=== PATIENT | female | born 1960 | race Two or more races ===

== ENCOUNTER 2017-06-29 00:53 | Observation (INO) | payer OTHER ==
--- NOTE | 2017-06-29 01:21 | ED ---
GI/ HPI - HPI Summary HPI Summary: 56-year-old female presents with left lower quadrant pain for the past two days. She states on Tuesday she had this pain she thought it was food poisoning. She states that it went away and Tuesday she developed a headache which has since resolved. She states last night the pain returned and has been very intense in her left lower quadrant for the past couple hours. She states it is a little better after she vomited. She has only vomited once. She denies any nausea at the moment. She denies any diarrhea constipation. She states it feels similar to when she had ectopic 10 years ago in her fallopian tube on the left side. She had surgery for the ectopic. No other surgeries. No fevers. No pain with urination. No vaginal discharge. She states she feels a pressure in her rectum. No blood in her stool. No flank pain. She states the pain is very localized and does not move anywhere. She has not taken anything for pain. Pain is currently a 6 out of 10. She states she still gets her priod but it is regular. She finished her period a couple days ago. She states the pain is worst with movement. - History of Current Complaint Pain Intensity: 7 <Rosaura Montesinos - Last Filed: 06/29/17 02:36> <Reuben Gil - Last Filed: 06/29/17 04:07> - History of Current Complaint Chief Complaint: EDAbdPain Time Seen by Provider: 06/29/17 01:10 Stated Complaint: ABD PAIN - Allergy/Home Medications Allergies/Adverse Reactions: Allergies Allergy/AdvReac Type Severity Reaction Status Date / Time No Known Allergies Allergy Verified 06/29/17 00:59 Home Medications: Home Medications NK [No Home Medications Reported] 06/29/17 [History Confirmed 06/29/17] PMH/Surg Hx/FS Hx/Imm Hx Endocrine/Hematology History: Denies: Hx Anticoagulant Therapy Respiratory History: Denies: Hx Asthma Infectious Disease History: No Infectious Disease History: Denies: Traveled Outside the [place] in Last 30 Days - Family History Known Family History: Negative: Diabetes <Rosaura Montesinos - Last Filed: 06/29/17 02:36> Review of Systems Negative: Fever Negative: Chest Pain Negative: Shortness Of Breath Positive: Abdominal Pain - LLQ, Vomiting, Nausea. Negative: Diarrhea All Other Systems Reviewed And Are Negative: Yes <YamelRosaura - Last Filed: 06/29/17 02:36> Physical Exam Triage Information Reviewed: Yes Vital Signs On Initial Exam: Initial Vitals Temp Pulse Resp BP Pulse Ox 97.5 F 84 16 153/81 99 06/29/17 00:55 06/29/17 00:55 06/29/17 00:55 06/29/17 00:55 06/29/17 00:55 Vital Signs Reviewed: Yes Appearance: Positive: Well-Appearing Skin: Positive: Warm, Dry Head/Face: Positive: Normal Head/Face Inspection Eyes: Positive: Normal, Conjunctiva Clear Respiratory/Lung Sounds: Positive: Clear to Auscultation, Breath Sounds Present Cardiovascular: Positive: Normal, RRR Abdomen Description: Positive: Soft, Other: - tenderness LLQ, no rebound, no inguinal lymphadenopathy, no hearnia felt. Negative: CVA Tenderness (L) Bowel Sounds: Positive: Present Pelvic Exam: Positive: External Exam Normal, Bimanual Exam Normal, No Cerv. Motion Tender. Negative: Tender w/ Cervical Motion, Tender Adnexa, Tender Uterus Musculoskeletal: Positive: Normal Neurological: Positive: Normal Psychiatric: Positive: Normal <YamelRosaura - Last Filed: 06/29/17 02:36> Vital Signs On Initial Exam: Initial Vitals Temp Pulse Resp BP Pulse Ox 97.5 F 84 16 153/81 99 06/29/17 00:55 06/29/17 00:55 06/29/17 00:55 06/29/17 00:55 06/29/17 00:55 <Reuben Gil - Last Filed: 06/29/17 04:07> Diagnostics - Vital Signs Vital Signs Temp Pulse Resp BP Pulse Ox 06/29/17 00:55 97.5 F 84 16 153/81 99 - Laboratory Result Diagrams: 06/29/17 01:25 06/29/17 01:25 Lab Statement: Any lab studies that have been ordered have been reviewed, and results considered in the medical decision making process. <Rosaura Montesinos - Last Filed: 06/29/17 02:36> - Vital Signs Vital Signs Temp Pulse Resp BP Pulse Ox 06/29/17 03:00 80 97 06/29/17 02:51 91 168/103 99 06/29/17 02:20 86 149/83 98 06/29/17 02:18 88 100 06/29/17 00:55 97.5 F 84 16 153/81 99 - Laboratory Lab Results: Lab Results 06/29/17 06/29/17 06/29/17 Range/Units 01:05 01:25 01:25 WBC 11.0 H (3.5-10.8) 10^3/ul RBC 4.52 (4.0-5.4) 10^6/ul Hgb 11.8 L (12.0-16.0) g/dl Hct 36 (35-47) % MCV 80 (80-97) fL MCH 26 L (27-31) pg MCHC 33 (31-36) g/dl RDW 14 (10.5-15) % Plt Count 213 (150-450) 10^3/ul MPV 8.3 (7.4-10.4) um3 Neut % (Auto) 64.3 (38-83) % Lymph % (Auto) 26.9 (25-47) % [place] % (Auto) 6.9 (0-7) % Eos % (Auto) 1.4 (0-6) % Baso % (Auto) 0.5 (0-2) % Absolute Neuts (auto) 7.0 (1.5-7.7) 10^3/ul Absolute Lymphs (auto) 3.0 (1.0-4.8) 10^3/ul Absolute Monos (auto) 0.8 (0-0.8) 10^3/ul Absolute Eos (auto) 0.2 (0-0.6) 10^3/ul Absolute Basos (auto) 0.1 (0-0.2) 10^3/ul Absolute Nucleated RBC 0 10^3/ul Nucleated RBC % 0 Sodium 137 L (139-145) mmol/L Potassium 3.6 (3.5-5.0) mmol/L Chloride 103 (101-111) mmol/L Carbon Dioxide 28 (22-32) mmol/L Anion Gap 6 (2-11) mmol/L BUN 19 (6-24) mg/dL Creatinine 1.07 H (0.51-0.95) mg/dL Est GFR ( Amer) 68.7 (>60) Est GFR (Non-Af Amer) 53.4 (>60) BUN/Creatinine Ratio 17.8 (8-20) Glucose 149 H (70-100) mg/dL Lactic Acid (0.5-2.0) mmol/L Calcium 9.0 (8.6-10.3) mg/dL Total Bilirubin 0.30 (0.2-1.0) mg/dL AST 16 (13-39) U/L ALT 22 (7-52) U/L Alkaline Phosphatase 52 (34-104) U/L C-React Prot High Sens 2.00 mg/L Total Protein 7.2 (6.4-8.9) g/dL Albumin 4.1 (3.2-5.2) g/dL Globulin 3.1 (2-4) g/dL Albumin/Globulin Ratio 1.3 (1-3) Lipase 41 (11.0-82.0) U/L Beta HCG, Quant < 0.60 mIU/mL Urine Color Yellow Urine Appearance Cloudy Urine pH 6.0 (5-9) Ur Specific [place] 1.017 (1.010-1.030) Urine Protein Negative (Negative) Urine Ketones Negative (Negative) Urine Blood 3+ A (Negative) Urine Nitrate Negative (Negative) Urine Bilirubin Negative (Negative) Urine Urobilinogen Negative (Negative) Ur Leukocyte Esterase 1+ A (Negative) Urine WBC (Auto) Trace(0-5/hpf) (Absent) Urine RBC (Auto) 3+(>10/hpf) A (Absent) Ur Squamous Epith Cells Present A (Absent) Urine Bacteria Absent (Absent) Urine Glucose Negative (Negative) 06/29/17 Range/Units 01:25 WBC (3.5-10.8) 10^3/ul RBC (4.0-5.4) 10^6/ul Hgb (12.0-16.0) g/dl Hct (35-47) % MCV (80-97) fL MCH (27-31) pg MCHC (31-36) g/dl RDW (10.5-15) % Plt Count (150-450) 10^3/ul MPV (7.4-10.4) um3 Neut % (Auto) (38-83) % Lymph % (Auto) (25-47) % [place] % (Auto) (0-7) % Eos % (Auto) (0-6) % Baso % (Auto) (0-2) % Absolute Neuts (auto) (1.5-7.7) 10^3/ul Absolute Lymphs (auto) (1.0-4.8) 10^3/ul Absolute Monos (auto) (0-0.8) 10^3/ul Absolute Eos (auto) (0-0.6) 10^3/ul Absolute Basos (auto) (0-0.2) 10^3/ul Absolute Nucleated RBC 10^3/ul Nucleated RBC % Sodium (139-145) mmol/L Potassium (3.5-5.0) mmol/L Chloride (101-111) mmol/L Carbon Dioxide (22-32) mmol/L Anion Gap (2-11) mmol/L BUN (6-24) mg/dL Creatinine (0.51-0.95) mg/dL Est GFR ( Amer) (>60) Est GFR (Non-Af Amer) (>60) BUN/Creatinine Ratio (8-20) Glucose (70-100) mg/dL Lactic Acid 0.9 (0.5-2.0) mmol/L Calcium (8.6-10.3) mg/dL Total Bilirubin (0.2-1.0) mg/dL AST (13-39) U/L ALT (7-52) U/L Alkaline Phosphatase (34-104) U/L C-React Prot High Sens mg/L Total Protein (6.4-8.9) g/dL Albumin (3.2-5.2) g/dL Globulin (2-4) g/dL Albumin/Globulin Ratio (1-3) Lipase (11.0-82.0) U/L Beta HCG, Quant mIU/mL Urine Color Urine Appearance Urine pH (5-9) Ur Specific [place] (1.010-1.030) Urine Protein (Negative) Urine Ketones (Negative) Urine Blood (Negative) Urine Nitrate (Negative) Urine Bilirubin (Negative) Urine Urobilinogen (Negative) Ur Leukocyte Esterase (Negative) Urine WBC (Auto) (Absent) Urine RBC (Auto) (Absent) Ur Squamous Epith Cells (Absent) Urine Bacteria (Absent) Urine Glucose (Negative) Result Diagrams: 06/29/17 01:25 06/29/17 01:25 Lab Statement: Any lab studies that have been ordered have been reviewed, and results considered in the medical decision making process. <Reuben Gil - Last Filed: 06/29/17 04:07> Re-Evaluation - Re-Evaluation First Eval Change: Improved - pain improved. Start Flomax. <Reuben Gil - Last Filed: 06/29/17 04:07> GIGU Course/Dx - Course Course Of Treatment: 56-year-old female presents with left lower quadrant pain for the past couple hours. She states on Tuesday she had this pain she thought it was food poisoning. She states that it went away and Tuesday she developed a headache which has since resolved. She states last night the pain returned and has been very intense in her left lower quadrant. She states it is a little better after she vomited. She denies any diarrhea constipation. She states it feels similar to when she had ectopic 10 years ago. She had surgery for the ectopic. No other surgeries. No fevers. No pain with urination. No vaginal discharge. She states she feels a pressure in her rectum. No blood in her stool. No flank pain. She states the pain is very localized and does not move anywhere. She has not taken anything for pain. Pain is currently a 6 out of 10. On exam tenderness left lower quadrant/left inguinal area. No lymphadenopathy. No hernia noted. Has scar on abdomen from ectopic surgery. pelvic exam nontender cervix or left adnexal. patient is currently decline pain and nausea medication. labs:wbc 11. urine likely a contaminent with hematuria. crp normal. hcg neg. patient signed out to dr Gil pending CT for dispo. - Diagnoses Differential Diagnoses - Female: Bowel Obstruction, Diverticulitis, Incarcerated Hernia, Urinary Tract Infection, Ureteral Calculi <Rosaura Montesinos - Last Filed: 06/29/17 02:36> - Course Course Of Treatment: I supervised the care of the physician assistant golf professional and I performed a history and physical on this patient. History: Left flank pain radiating to the groin beginning 1-1/2-2 days ago. Pain now is mostly in the left pelvis. Nausea, vomiting. No fever. No dysuria. Physical exam: Comfortable at this point with no CVA tenderness. No palpable abdominal or pelvic tenderness. Plan: CT proves 5 mm obstructing distal stone on the left. There is perinephric stranding with concern for rupture of calyx. Start Flomax , urology consult in the morning. Patient is comfortable. Hospitalist to admit. - Physician Notifications Discussed Care Of Patient With: Eliu Vivar - Will admit to the hospital. Urology consult in the morning. <Reuben Gil - Last Filed: 06/29/17 04:07> - Diagnoses Provider Diagnoses: Ureterolithiasis, Renal colic on left side, Obstructive uropathy Discharge - Sign-Out/Discharge Documenting (check all that apply): Sign-Out Patient Signing out patient TO: Reuben Gil <Rosaura Montesinos - Last Filed: 06/29/17 02:36> - Sign-Out/Discharge Documenting (check all that apply): Discharge/Admit/Transfer - Billing Disposition and Condition Condition: FAIR [place] [place]Reuben Gil - Last Filed: 06/29/17 04:07> - Discharge Plan Condition: Fair Disposition: ADMITTED TO [facility] Referrals: Rosaura Phillips MD [Primary Care Provider] -
[2017-06-29 01:55] LABS: Urine Appearance Cloudy; Urine Blood 3+ (Negative); Urine Color Yellow; Urine Ketones Negative (Negative); Urine Protein Negative (Negative); Urine Specific Gravity 1.017 (1.010-1.030); Urine Urobilinogen Negative (Negative)
[2017-06-29 01:56] LABS: ABS Basophils 0.1 10^3/ul (0-0.2); ABS Eosinophils 0.2 10^3/ul (0-0.6); ABS Monocytes 0.8 10^3/ul (0-0.8); ABS Nucleated RBC 0 10^3/ul; Eosinophil % 1.4 % (0-6); Hematocrit 36 % (35-47); Hemoglobin 11.8 g/dl (12.0-16.0); Lymphocyte % 26.9 % (25-47); Mean Corpuscular HGB Conc 33 g/dl (31-36); Mean Corpuscular Hemoglobin 26 pg (27-31); Mean Corpuscular Volume 80 fL (80-97); Mean Platelet Volume 8.3 um3 (7.4-10.4); Nucleated Red Blood Cells % 0; Platelet Count 213 10^3/ul (150-450); Red Blood Count 4.52 10^6/ul (4.0-5.4); Red Cell Distribution Width 14 % (10.5-15)
[2017-06-29 02:14] LABS: EGFR Non-African American 53.4 (>60)
[2017-06-29] MEDS ORDERED: Tamsulosin CAP* 0.4 MG PO ONE (03:43)
[2017-06-29] MEDS ORDERED: NS 0.9% 1000 ML* 1,000 ML IV ONE (03:43)
[2017-06-29] MEDS ORDERED: traMADol TAB* 50 MG PO PRN (05:23)
[2017-06-29] MEDS ORDERED: Ondansetron INJ* 2 MG/ML VIAL IV PRN (05:23)
[2017-06-29] MEDS ORDERED: Acetaminophen TAB* 325 MG PO PRN (05:23)
[2017-06-29] MEDS ORDERED: Ketorolac INJ* 30 MG/ML 1 ML VIAL IV PRN (05:23)
--- NOTE | 2017-06-29 06:49 | HP ---
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 Tuesday she did not feel well with a headache and experienced severe L flank cramping pain which reminded her of her previous ectopic pain prompting her to present for evaluation which revealed a 5mm L UVJ stone with hydronephrosis & concern for ruptured calyx. She experienced some nausea and sweats with the worst of the pain, but no F/C. She did vomit once in the ED. PMedHx ectopic s/p L salpingectomy urolithiasis, remote Ambulatory Orders NK [No Home Medications Reported] 06/29/17 Allergies No Known Allergies Allergy (Verified 06/29/17 00:59) PSurgHx L salpingectomy tonsillectomy SocHx: no tobacco, rare alcohol, no recreational drugs; lives with her ; full code status FamHx: reviewed & negative ROS: as above, otherwise reviewed and all were negative vitals: Vital Signs Temp 36.8 C 06/29/17 06:05 Pulse 92 06/29/17 06:05 Resp 18 06/29/17 06:05 BP 148/85 06/29/17 06:05 Pulse Ox 97 06/29/17 06:05 Intake & Output 06/28/17 06/28/17 06/29/17 11:59 23:59 11:59 Intake Total 1000 Output Total 300 Balance 700 Weight 61.235 kg Intake: IV Fluids 1000 Output: Urine 300 Constitutional: NAD, normally developed, well-nourished female HEENM: atraumatic; sclera/conjunctiva: anicteric/clear; hearing: intact; oropharynx: clear, moist Neck: soft tissue: non-tender; thyroid: normal Pulmonary: clear to auscultation bilaterally, good aeration, no accessory muscle use CV: RR/RR, normal S1S2, no carotid bruit, no jugular venous distention, 2+ B DP/ PT, no edema Abdominal: soft, non-distended, non-tender, no rebound/guarding/rigidity, normoactive bowel sounds, no hepatosplenomegaly or masses, no costovertebral angle tenderness Musculoskeletal: general: grossly intact, no tenderness to palpation Integumental: normal appearance and texture of exposed skin Psychiatric orientation: AA&O to PPTS affect: calm mood: pleasant eye contact: good content: reliable memory: intact responses: timely insight: excellent Testing: Lab Results 06/29/17 06/29/17 06/29/17 Range/Units 01:05 01:25 01:25 WBC 11.0 H (3.5-10.8) 10^3/ul RBC 4.52 (4.0-5.4) 10^6/ul Hgb 11.8 L (12.0-16.0) g/dl Hct 36 (35-47) % MCV 80 (80-97) fL MCH 26 L (27-31) pg MCHC 33 (31-36) g/dl RDW 14 (10.5-15) % Plt Count 213 (150-450) 10^3/ul MPV 8.3 (7.4-10.4) um3 Neut % (Auto) 64.3 (38-83) % Lymph % (Auto) 26.9 (25-47) % [place] % (Auto) 6.9 (0-7) % Eos % (Auto) 1.4 (0-6) % Baso % (Auto) 0.5 (0-2) % Absolute Neuts (auto) 7.0 (1.5-7.7) 10^3/ul Absolute Lymphs (auto) 3.0 (1.0-4.8) 10^3/ul Absolute Monos (auto) 0.8 (0-0.8) 10^3/ul Absolute Eos (auto) 0.2 (0-0.6) 10^3/ul Absolute Basos (auto) 0.1 (0-0.2) 10^3/ul Absolute Nucleated RBC 0 10^3/ul Nucleated RBC % 0 Sodium 137 L (139-145) mmol/L Potassium 3.6 (3.5-5.0) mmol/L Chloride 103 (101-111) mmol/L Carbon Dioxide 28 (22-32) mmol/L Anion Gap 6 (2-11) mmol/L BUN 19 (6-24) mg/dL Creatinine 1.07 H (0.51-0.95) mg/dL Est GFR ( Amer) 68.7 (>60) Est GFR (Non-Af Amer) 53.4 (>60) BUN/Creatinine Ratio 17.8 (8-20) Glucose 149 H (70-100) mg/dL Lactic Acid (0.5-2.0) mmol/L Calcium 9.0 (8.6-10.3) mg/dL Total Bilirubin 0.30 (0.2-1.0) mg/dL AST 16 (13-39) U/L ALT 22 (7-52) U/L Alkaline Phosphatase 52 (34-104) U/L C-React Prot High Sens 2.00 mg/L Total Protein 7.2 (6.4-8.9) g/dL Albumin 4.1 (3.2-5.2) g/dL Globulin 3.1 (2-4) g/dL Albumin/Globulin Ratio 1.3 (1-3) Lipase 41 (11.0-82.0) U/L Beta HCG, Quant < 0.60 mIU/mL Urine Color Yellow Urine Appearance Cloudy Urine pH 6.0 (5-9) Ur Specific [place] 1.017 (1.010-1.030) Urine Protein Negative (Negative) Urine Ketones Negative (Negative) Urine Blood 3+ A (Negative) Urine Nitrate Negative (Negative) Urine Bilirubin Negative (Negative) Urine Urobilinogen Negative (Negative) Ur Leukocyte Esterase 1+ A (Negative) Urine WBC (Auto) Trace(0-5/hpf) (Absent) Urine RBC (Auto) 3+(>10/hpf) A (Absent) Ur Squamous Epith Cells Present A (Absent) Urine Bacteria Absent (Absent) Urine Glucose Negative (Negative) 06/29/17 Range/Units 01:25 WBC (3.5-10.8) 10^3/ul RBC (4.0-5.4) 10^6/ul Hgb (12.0-16.0) g/dl Hct (35-47) % MCV (80-97) fL MCH (27-31) pg MCHC (31-36) g/dl RDW (10.5-15) % Plt Count (150-450) 10^3/ul MPV (7.4-10.4) um3 Neut % (Auto) (38-83) % Lymph % (Auto) (25-47) % [place] % (Auto) (0-7) % Eos % (Auto) (0-6) % Baso % (Auto) (0-2) % Absolute Neuts (auto) (1.5-7.7) 10^3/ul Absolute Lymphs (auto) (1.0-4.8) 10^3/ul Absolute Monos (auto) (0-0.8) 10^3/ul Absolute Eos (auto) (0-0.6) 10^3/ul Absolute Basos (auto) (0-0.2) 10^3/ul Absolute Nucleated RBC 10^3/ul Nucleated RBC % Sodium (139-145) mmol/L Potassium (3.5-5.0) mmol/L Chloride (101-111) mmol/L Carbon Dioxide (22-32) mmol/L Anion Gap (2-11) mmol/L BUN (6-24) mg/dL Creatinine (0.51-0.95) mg/dL Est GFR ( Amer) (>60) Est GFR (Non-Af Amer) (>60) BUN/Creatinine Ratio (8-20) Glucose (70-100) mg/dL Lactic Acid 0.9 (0.5-2.0) mmol/L Calcium (8.6-10.3) mg/dL Total Bilirubin (0.2-1.0) mg/dL AST (13-39) U/L ALT (7-52) U/L Alkaline Phosphatase (34-104) U/L C-React Prot High Sens mg/L Total Protein (6.4-8.9) g/dL Albumin (3.2-5.2) g/dL Globulin (2-4) g/dL Albumin/Globulin Ratio (1-3) Lipase (11.0-82.0) U/L Beta HCG, Quant mIU/mL Urine Color Urine Appearance Urine pH (5-9) Ur Specific [place] (1.010-1.030) Urine Protein (Negative) Urine Ketones (Negative) Urine Blood (Negative) Urine Nitrate (Negative) Urine Bilirubin (Negative) Urine Urobilinogen (Negative) Ur Leukocyte Esterase (Negative) Urine WBC (Auto) (Absent) Urine RBC (Auto) (Absent) Ur Squamous Epith Cells (Absent) Urine Bacteria (Absent) Urine Glucose (Negative) CT abd/pel WO, personally reviewed: IMPRESSION: Mild to moderate left hydronephrosis and perirenal inflammation with possible ruptured calyx secondary to a 5mm distal left ureteral stone just proximal to the UVJ. Additional small left renal stone. Impression: 56F HX urolithiasis presents with 5mm L UVJ stone & ? ruptured calyx DIAGNOSIS & PLAN Primary 5mm L UVJ stone & ? ruptured calyx : pain control : Regulo Chen MD urology consulted, will evaluate in AM : NPO x/ meds with sips of clears : supportive care Admission Rational: observation for further evaluation of possible ruptured calyx 2nd L UVJ stone DVTp: SCDs Code Status: full HCP:
--- NOTE | 2017-06-29 07:51 | RAD ---
INDICATION: Left lower quadrant pain and hematuria. COMPARISON: Comparison is made with a prior CT of the abdomen and pelvis from March 30, 2004. TECHNIQUE: A CT scan of the abdomen and pelvis was performed without intravenous or oral contrast. Contiguous axial sections were obtained from the lung bases through the symphysis pubis. Images were reconstructed in the coronal and sagittal planes. FINDINGS: The lung bases are clear. No pleural effusion is present. The liver and spleen are within normal limits in size without significant focal abnormality on this noncontrast study. No calcified gallstones are seen. The pancreas appears to be within normal limits in size. The adrenal glands and right kidney appear to be within normal limits. There are several small calculi within the left kidney. The largest measures 4 mm in size. The left kidney is enlarged with perinephric stranding. There is dilatation of the renal calyces, pelvis and ureter to the level of a 5 mm calculus just proximal to the ureterovesical junction. This is causing moderate hydronephrosis. In addition there is fluid tracking around the kidney and proximal ureter possibly secondary to a ruptured calyx. The aorta is normal in caliber without significant calcific plaque. No significant enlarged retroperitoneal lymph nodes are seen. The stomach, small and large bowel appear nondistended. The appendix is not well visualized. There is mild sigmoid diverticulosis without evidence for diverticulitis. There is a small periumbilical hernia containing fat. No free intraperitoneal air or fluid is seen. There is grade 1 anterior spondylolisthesis at the L5-S1 level and bilateral spondylolysis at the L5 level. IMPRESSION: 1. MODERATE LEFT HYDRONEPHROSIS WHICH APPEARS TO BE SECONDARY TO A 5 MM CALCULUS IN THE DISTAL LEFT URETER JUST PROXIMAL TO URETEROVESICAL JUNCTION. THERE IS FLUID TRACKING AROUND THE LEFT KIDNEY AND PROXIMAL URETER LIKELY SECONDARY TO A RUPTURED CALYX. THERE ARE ADDITIONAL SMALL LEFT RENAL CALCULI. 2. GRADE 1 ANTERIOR SPONDYLOLISTHESIS AT THE L5-S1 LEVEL AND BILATERAL SPONDYLOLYSIS AT THE L5 LEVEL.
--- NOTE | 2017-06-29 09:35 | RAD ---
INDICATION: Evaluation for surgical planning COMPARISON: None TECHNIQUE: Real-time ultrasound examination of the urinary bladder including grayscale and Doppler color flow analysis. FINDINGS: The patiño of the urinary bladder are smooth. Normal ureteral jets are identified bilaterally. IMPRESSION: Functional ureteral jets are recorded bilaterally.
--- NOTE | 2017-06-29 13:49 | CONS ---
CC: Dr. Rosaura Phillips; Santi Chen MD* UROLOGY CONSULTATION: DATE OF CONSULTATION: 06/29/17 REQUESTING PHYSICIAN: Dr. Eliu Vivar. DIAGNOSES: 1. Left hydronephrosis. 2. Calculus, left distal ureter. 3. Left renal calculi. 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 The pain then subsided and returned on Tuesday with increasing left flank pain, nausea, and vomiting requiring a trip to the emergency room. A CT scan was obtained, which revealed a 5 to 6 mm calculus in the left distal ureter with moderate left hydronephrosis and evidence of calyceal rupture. PAST MEDICAL HISTORY: Significant for ectopic requiring a left salpingectomy and a remote history of a kidney stone about 20 years ago. PAST SURGICAL HISTORY: Significant for left salpingectomy and tonsillectomy. MEDICATIONS ON ADMISSION: None. ALLERGIES: No known drug allergies. FAMILY HISTORY: There is no family history of renal calculi. REVIEW OF SYSTEMS: She is otherwise in excellent health. She denies any chest pain or shortness of breath. There is no history of diabetes mellitus or any other major systemic illness. PHYSICAL EXAM: This is a pleasant healthy-appearing middle-aged lady who is mildly uncomfortable. Blood pressure is 131/73, pulse 94 per minute, temperature 98 degrees Fahrenheit, oxygen saturation 98% on room air. Cardiovascular Exam: Regular rate and rhythm. S1 and S2. Lungs are clear bilaterally. Abdomen is soft with very mild left lower quadrant and left costovertebral angle tenderness. DIAGNOSTIC STUDIES/LABORATORY DATA: I reviewed the labs which revealed a white count of 11.4, hemoglobin and hematocrit of 11.8 and 36 with a platelet count of 213. Sodium is 137, potassium 3.6, BUN and creatinine are 19 and 1.07 with a serum glucose of 149. Urinalysis revealed 3+ rbc's, with negative bacteria. I reviewed the CT scan, which reveals moderate left hydronephrosis secondary to a 5 to 6 mm calculus in the distal left ureter with additional small left renal calculi. I had a detailed discussion with Dr. Saldivar regarding the management of a small left ureteral calculus. I also was present when she had a bladder ultrasound to check for bilateral ureteral jets and bilateral jets were noted on the ultrasound to ruling out a complete obstruction. I do not see any indication at the present time for surgical intervention and I think that this should be managed conservatively. She should be able to pass the calculus with intravenous hydration and can also once she is comfortable be discharged home and can follow up as an outpatient. I have instructed her to call me if there is any severe pain, nausea, vomiting or fever and I will follow her up as an outpatient. [id number]/[facility] #: [id number] EMI
[2017-06-29 14:27] VITALS: BP 112/69
--- NOTE | 2017-06-29 18:04 | DS ---
CC: Dr. Rosaura Phillips; Dr. Chen* DISCHARGE SUMMARY: DATE OF ADMISSION: 06/29/17 DATE OF DISCHARGE: 06/29/17 PRIMARY CARE PROVIDER: Dr. Rosaura Phillips. DISCHARGE DIAGNOSIS: Acute left hydronephrosis with calculus in the left distal ureter. SECONDARY DIAGNOSIS: None. MEDICATIONS AT DISCHARGE: None. HOSPITALIZATION COURSE: Elly Saldivar is a 56-year-old female who presented to the hospital complaining of left flank pain. The CT of the abdomen and pelvis showed left-sided hydronephrosis with ruptured renal calyx as well as ureteral obstruction due to 5 mm calculus at the distal left ureter. By the time the patient was admitted to the floor, her pain had begun to resolve. Repeat bladder ultrasound showed functional ureteral jets. Dr. Chen saw the patient in consultation from Urology and recommended discharging the patient to home. It appears that the patient must have passed the renal stone. The patient is to use Tylenol over-the- counter as needed for pain. At the time of discharge, the patient has minimal discomfort in the left flank and no tenderness on palpation. The patient is recommended to follow up with Dr. Phillips in approximately 4 to 7 days. PHYSICAL EXAMINATION: At the time of discharge, blood pressure of 112/69, heart rate of 82 and regular, respiratory rate 17, oxygen saturation 100% on room air, temperature of 98.0. General: The patient is a very pleasant 56-year -old female, who is in no acute distress. Alert, awake, and oriented x3. HEENT : Head: Atraumatic, normocephalic. Eyes: Pupils are equal, reactive to light and accommodation. Oropharynx is clear. Mucosa moist. Neck: Supple. No JVD. No bruits bilaterally. Cardiovascular: Regular rate and rhythm. No murmur. Respiratory: Clear to auscultation bilaterally. Abdomen: Soft, nontender. Bowel sounds are present in all 4 quadrants. Extremities: There is no edema. Pulses are +2 bilaterally. No clubbing or cyanosis. On evaluation of the back, there is no CVA tenderness on palpation bilaterally. Please note that this is a short summary of the patient's hospitalization. Please refer to further medical records for details. [id number]/[facility] #: [id number] [facility]
== END 2017-06-29 13:10 | disposition home or self-care (01) ==
LOC: ED 00:53 → MED 05:21
PROVIDERS: ADMIT Hospitalist; ATTEND Internal Medicine
DX: N13.2 Hydronephrosis with renal and ureteral calculous obstruction (principal)
CPT/HCPCS: 36415; 74176; 76857; 80053; 81003; 81015; 83605; 83690; 84702; 85025; 86141; 87086; 96360; 99284; A9270-GY; G0378

== ENCOUNTER 2017-06-30 05:37 | Observation (INO) | payer OTHER ==
[2017-06-30] MEDS ORDERED: Ondansetron INJ* 2 MG/ML VIAL ONE ×2 (06:09→17:39)
[2017-06-30] MEDS ORDERED: Ketorolac INJ* 30 MG/ML 1 ML VIAL ONE ×2 (06:09→17:39)
[2017-06-30] MEDS ORDERED: Ketorolac INJ* 30 MG/ML 1 ML VIAL IV PUSH ONE (06:11)
[2017-06-30] MEDS ORDERED: Ondansetron INJ* 2 MG/ML VIAL IV ONE (06:11)
[2017-06-30] MEDS ORDERED: NS 0.9% 1000 ML*IV.FLUID IV ONE (06:15)
--- NOTE | 2017-06-30 06:33 | ED ---
GI/ HPI - HPI Summary HPI Summary: Pt here again today for return of (and worse) LLQ pain w/ Lt flank pain. She was dx'd w/ 5mm stone at UVJ w/ moderate hydronephrosis and ruptured calyces. She was kept for observation and consult w/ Dr. Chen. At time of consult, pt's pain had resolved and she had jets B/L. It was suspected she had passed her stone and so she was d/c'd and instructed to take acetaminophen for pain and f/ u at 8:15am today. Unfortunately, her pain returned in both the flank and LLQ this morning around 4:00am. She tried to treat at home w/ acetaminophen and heat packs until the pain was so unbearable, she came here. Has pain related emesis. Denies fever, chills, PETERSON, CP. Still urinating and had 1 small BM this morning (a couple yesterday while here). Otherwise, healthy 56 y.o. female. She is requesting toradol at this time. - History of Current Complaint Hx Obtained From: Patient Pain Intensity: 9 - Additional Pertinent History Primary Care Physician: [id number] <Mary Chairez - Last Filed: 06/30/17 10:12> <Reuben Gil - Last Filed: 07/01/17 05:29> - History of Current Complaint Chief Complaint: EDFlankPain Time Seen by Provider: 06/30/17 05:54 Stated Complaint: ABD PAIN/VOMITING - Allergy/Home Medications Allergies/Adverse Reactions: Allergies Allergy/AdvReac Type Severity Reaction Status Date / Time No Known Allergies Allergy Verified 06/30/17 05:42 PMH/Surg Hx/FS Hx/Imm Hx Previously Healthy: Yes Endocrine/Hematology History: Denies: Hx Anticoagulant Therapy Respiratory History: Denies: Hx Asthma History: Reports: Hx Kidney Stones - Lt Sensory History: Denies: Hx Contacts or Glasses, Hx Hearing Aid Opthamlomology History: Denies: Hx Contacts or Glasses Infectious Disease History: No Infectious Disease History: Denies: Traveled Outside the [place] in Last 30 Days - Family History Known Family History: Negative: Diabetes - Social History Occupation: Employed Full-time - [employer] Lives: With Family Alcohol Use: Rare Hx Substance Use: No Substance Use Type: Reports: None Hx Tobacco Use: No Smoking Status (MU): Never Smoked Tobacco <Mary Chairez - Last Filed: 06/30/17 10:12> Review of Systems Constitutional: Negative Negative: Fever, Chills, Fatigue Eyes: Negative ENT: Negative Cardiovascular: Negative Respiratory: Negative Positive: Vomiting Positive: see HPI Musculoskeletal: Negative Skin: Negative Neurological: Negative Psychological: Normal All Other Systems Reviewed And Are Negative: Yes <Mary Chairez - Last Filed: 06/30/17 10:12> Physical Exam Triage Information Reviewed: Yes Vital Signs On Initial Exam: Initial Vitals Temp Pulse Resp BP Pulse Ox 97.3 F 87 18 154/93 98 06/30/17 05:39 06/30/17 05:39 06/30/17 05:39 06/30/17 05:39 06/30/17 05:39 Vital Signs Reviewed: Yes Appearance: Positive: Well-Nourished, Ill-Appearing, Pain Distress Skin: Positive: Warm, Skin Color Reflects Adequate Perfusion, Dry Head/Face: Positive: Normal Head/Face Inspection Eyes: Positive: Normal, EOMI ENT: Positive: Hearing grossly normal, Pharynx normal - mucosa somewhat dry Respiratory/Lung Sounds: Positive: Clear to Auscultation, Breath Sounds Present Cardiovascular: Positive: Normal, RRR, S1, S2 Abdomen Description: Positive: Soft, Other: - TTP over LLQ - CVA not tapped as pt is in good deal of pain w/ known cause Bowel Sounds: Positive: Present Pelvic Exam: Positive: Other - deferred Musculoskeletal: Positive: Normal, Strength/ROM Intact Neurological: Positive: Normal, Sensory/Motor Intact, Alert, Oriented to Person Place, Time, CN Intact II-III Psychiatric: Positive: Normal - vomiting but pleasant <Mary Chairez - Last Filed: 06/30/17 10:12> Vital Signs On Initial Exam: Initial Vitals Temp Pulse Resp BP Pulse Ox 97.3 F 87 18 154/93 98 06/30/17 05:39 06/30/17 05:39 06/30/17 05:39 06/30/17 05:39 06/30/17 05:39 <Reuben Gil - Last Filed: 07/01/17 05:29> Diagnostics - Vital Signs Vital Signs Temp Pulse Resp BP Pulse Ox 06/30/17 06:19 77 167/108 99 06/30/17 06:00 84 98 06/30/17 05:49 83 179/98 98 06/30/17 05:39 97.3 F 87 18 154/93 98 - Laboratory Result Diagrams: 06/30/17 06:35 06/30/17 06:35 Lab Statement: Any lab studies that have been ordered have been reviewed, and results considered in the medical decision making process. <Mary Chairez - Last Filed: 06/30/17 10:12> - Vital Signs Vital Signs Temp Pulse Resp BP Pulse Ox 06/30/17 09:19 75 126/80 94 06/30/17 09:00 68 93 06/30/17 08:49 71 141/94 96 06/30/17 08:19 84 141/89 97 06/30/17 08:07 16 06/30/17 08:00 87 98 06/30/17 07:19 70 150/90 97 06/30/17 07:06 74 157/86 95 06/30/17 07:00 69 96 06/30/17 06:50 70 157/86 99 06/30/17 06:37 75 159/91 96 06/30/17 06:19 77 167/108 99 06/30/17 06:00 84 98 06/30/17 05:49 83 179/98 98 06/30/17 05:39 97.3 F 87 18 154/93 98 - Laboratory Lab Results: Lab Results 06/30/17 06/30/17 06/30/17 Range/Units 06:35 06:35 07:30 WBC 11.7 H (3.5-10.8) 10^3/ul RBC 4.50 (4.0-5.4) 10^6/ul Hgb 11.8 L (12.0-16.0) g/dl Hct 36 (35-47) % MCV 80 (80-97) fL MCH 26 L (27-31) pg MCHC 33 (31-36) g/dl RDW 15 (10.5-15) % Plt Count 201 (150-450) 10^3/ul MPV 8.7 (7.4-10.4) um3 Neut % (Auto) 73.4 (38-83) % Lymph % (Auto) 19.7 L (25-47) % [place] % (Auto) 5.4 (0-7) % Eos % (Auto) 1.0 (0-6) % Baso % (Auto) 0.5 (0-2) % Absolute Neuts (auto) 8.6 H (1.5-7.7) 10^3/ul Absolute Lymphs (auto) 2.3 (1.0-4.8) 10^3/ul Absolute Monos (auto) 0.6 (0-0.8) 10^3/ul Absolute Eos (auto) 0.1 (0-0.6) 10^3/ul Absolute Basos (auto) 0.1 (0-0.2) 10^3/ul Absolute Nucleated RBC 0 10^3/ul Nucleated RBC % 0.1 Sodium 137 L (139-145) mmol/L Potassium 3.9 (3.5-5.0) mmol/L Chloride 106 (101-111) mmol/L Carbon Dioxide 25 (22-32) mmol/L Anion Gap 6 (2-11) mmol/L BUN 15 (6-24) mg/dL Creatinine 0.92 (0.51-0.95) mg/dL Est GFR ( Amer) 81.8 (>60) Est GFR (Non-Af Amer) 63.6 (>60) BUN/Creatinine Ratio 16.3 (8-20) Glucose 144 H (70-100) mg/dL Lactic Acid (0.5-2.0) mmol/L Calcium 8.5 L (8.6-10.3) mg/dL Total Bilirubin 0.40 (0.2-1.0) mg/dL AST 15 (13-39) U/L ALT 18 (7-52) U/L Alkaline Phosphatase 49 (34-104) U/L C-Reactive Protein 3.40 (< 5.00) mg/L Total Protein 6.7 (6.4-8.9) g/dL Albumin 3.8 (3.2-5.2) g/dL Globulin 2.9 (2-4) g/dL Albumin/Globulin Ratio 1.3 (1-3) Urine Color Yellow Urine Appearance Clear Urine pH 7.0 (5-9) Ur Specific [place] 1.012 (1.010-1.030) Urine Protein Negative (Negative) Urine Ketones Trace A (Negative) Urine Blood 2+ A (Negative) Urine Nitrate Negative (Negative) Urine Bilirubin Negative (Negative) Urine Urobilinogen Negative (Negative) Ur Leukocyte Esterase Negative (Negative) Urine WBC (Auto) Trace(0-5/hpf) (Absent) Urine RBC (Auto) 1+(3-5/hpf) A (Absent) Ur Squamous Epith Cells Present A (Absent) Urine Bacteria Absent (Absent) Urine Glucose Negative (Negative) 06/30/17 Range/Units 07:55 WBC (3.5-10.8) 10^3/ul RBC (4.0-5.4) 10^6/ul Hgb (12.0-16.0) g/dl Hct (35-47) % MCV (80-97) fL MCH (27-31) pg MCHC (31-36) g/dl RDW (10.5-15) % Plt Count (150-450) 10^3/ul MPV (7.4-10.4) um3 Neut % (Auto) (38-83) % Lymph % (Auto) (25-47) % [place] % (Auto) (0-7) % Eos % (Auto) (0-6) % Baso % (Auto) (0-2) % Absolute Neuts (auto) (1.5-7.7) 10^3/ul Absolute Lymphs (auto) (1.0-4.8) 10^3/ul Absolute Monos (auto) (0-0.8) 10^3/ul Absolute Eos (auto) (0-0.6) 10^3/ul Absolute Basos (auto) (0-0.2) 10^3/ul Absolute Nucleated RBC 10^3/ul Nucleated RBC % Sodium (139-145) mmol/L Potassium (3.5-5.0) mmol/L Chloride (101-111) mmol/L Carbon Dioxide (22-32) mmol/L Anion Gap (2-11) mmol/L BUN (6-24) mg/dL Creatinine (0.51-0.95) mg/dL Est GFR ( Amer) (>60) Est GFR (Non-Af Amer) (>60) BUN/Creatinine Ratio (8-20) Glucose (70-100) mg/dL Lactic Acid 1.1 (0.5-2.0) mmol/L Calcium (8.6-10.3) mg/dL Total Bilirubin (0.2-1.0) mg/dL AST (13-39) U/L ALT (7-52) U/L Alkaline Phosphatase (34-104) U/L C-Reactive Protein (< 5.00) mg/L Total Protein (6.4-8.9) g/dL Albumin (3.2-5.2) g/dL Globulin (2-4) g/dL Albumin/Globulin Ratio (1-3) Urine Color Urine Appearance Urine pH (5-9) Ur Specific [place] (1.010-1.030) Urine Protein (Negative) Urine Ketones (Negative) Urine Blood (Negative) Urine Nitrate (Negative) Urine Bilirubin (Negative) Urine Urobilinogen (Negative) Ur Leukocyte Esterase (Negative) Urine WBC (Auto) (Absent) Urine RBC (Auto) (Absent) Ur Squamous Epith Cells (Absent) Urine Bacteria (Absent) Urine Glucose (Negative) Result Diagrams: 06/30/17 06:35 06/30/17 06:35 Lab Statement: Any lab studies that have been ordered have been reviewed, and results considered in the medical decision making process. <Reuben Gil - Last Filed: 07/01/17 05:29> Re-Evaluation - Re-Evaluation First Eval Change: Improved - 12/14-09/13 w/ toradol Second Eval Change: Improved - pt was trying to avoid narcotics but finally agreed to try 2mg morphine and feels much better now <Mary Chairez - Last Filed: 06/30/17 10:12> GIGU Course/Dx - Course Course Of Treatment: Patient is returning to the ED for second time within the past day due to left-sided flank and belly pain. She was diagnosed with a 5 mm UVJ stone yesterday that was suspected to have passed. Patient was sent home without pain meds and so when her pain returned at 4 AM this morning, she was only able to take Tylenol which did not alleviate the pain. She has had relief with Toradol and even more so with morphine. Nausea has resolved. Her ultrasound and KUB are unremarkable however after conversation with Dr. Chen, he will take patient to the OR to remove the stone. SHe has been NPO since arrival and has no other medical issues to report. Patient is aware and agrees with plan. Note: Patient has only a slight elevated white blood cell count, no fever, normal lactic and CRP levels. No antibiotics will be admitted at this time. <Mary Chairez - Last Filed: 06/30/17 10:12> - Course Course Of Treatment: I supervised the care of the physician assistant front desk manager and I performed a history of physical on this patient. History: Known renal colic with obstructing stone admitted to the hospital yesterday and discharged. They felt the stone had passed after seeing ureteral jets on ultrasound bilaterally. Today awoke with significant flank pain. Physical exam: Distressed, and pain. Abdomen soft and nontender. Plan: Treat for discomfort, admit as needed for pain control and urology consultation. <Reuben Gil - Last Filed: 07/01/17 05:29> - Diagnoses Provider Diagnoses: Left ureteral calculus Discharge - Sign-Out/Discharge Documenting (check all that apply): Discharge/Admit/Transfer - Billing Disposition and Condition Condition: STABLE [place] [facility] [place]Mary Chairez - Last Filed: 06/30/17 10:12> - Billing Disposition and Condition Condition: STABLE [place] [facility] [place] <Reuben Gil - Last Filed: 07/01/17 05:29> - Discharge Plan Condition: Stable Disposition: ADMITT[facility] TO [facility]
[2017-06-30 07:09] LABS: Hematocrit 36 % (35-47); Hemoglobin 11.8 g/dl (12.0-16.0); Mean Corpuscular HGB Conc 33 g/dl (31-36); Mean Corpuscular Hemoglobin 26 pg (27-31); Mean Corpuscular Volume 80 fL (80-97); Red Cell Distribution Width 15 % (10.5-15); White Blood Count 11.7 10^3/ul (3.5-10.8)
[2017-06-30] MEDS ORDERED: Morphine VIAL* 4 MG/ML VIAL (1 ml vial) IV ONE (07:17)
[2017-06-30 07:21] LABS: EGFR Non-African American 63.6 (>60)
[2017-06-30 07:48] LABS: Urine Appearance Clear; Urine Blood 2+ (Negative); Urine Color Yellow; Urine Ketones Trace (Negative); Urine Protein Negative (Negative); Urine Specific Gravity 1.012 (1.010-1.030); Urine Urobilinogen Negative (Negative)
[2017-06-30 08:06] LABS: ABS Basophils 0.1 10^3/ul (0-0.2); ABS Eosinophils 0.1 10^3/ul (0-0.6); ABS Lymphocytes 2.3 10^3/ul (1.0-4.8); ABS Monocytes 0.6 10^3/ul (0-0.8); ABS Neutrophils 8.6 10^3/ul (1.5-7.7); ABS Nucleated RBC 0 10^3/ul; Lymphocyte % 19.7 % (25-47); Mean Platelet Volume 8.7 um3 (7.4-10.4); Nucleated Red Blood Cells % 0.1; Platelet Count 201 10^3/ul (150-450)
--- NOTE | 2017-06-30 08:49 | RAD ---
INDICATION: Left ureteral calculus. COMPARISON: Comparison is made with a prior CT of the abdomen and pelvis from June 29, 2017. TECHNIQUE: Frontal supine films of the abdomen were obtained. FINDINGS: The small bowel and colon appear nondistended. There is a calcification which projects over the left kidney measuring 3 mm in size consistent with a renal calculus as noted on the prior CT study. There are numerous calcifications which project bilaterally over the pelvis making it difficult to assess the position of the previously noted left ureteral vesicle calculus. IMPRESSION: THERE ARE NUMEROUS CALCIFICATIONS WHICH PROJECT BILATERALLY OVER THE PELVIS MAKING IT DIFFICULT TO ASSESS THE POSITION OF THE PREVIOUSLY NOTED LEFT URETERAL VESICLE CALCULUS.
--- NOTE | 2017-06-30 08:51 | RAD ---
HISTORY: Left ureteral stone COMPARISONS: CT dated June 30, 2015 TECHNIQUE: Multiple transverse and longitudinal ultrasound images were obtained of the kidneys and bladder using grayscale and color Doppler imaging. FINDINGS: RIGHT KIDNEY: The right kidney is normal in shape, size, contour, and echogenicity. There is no hydronephrosis or nephrolithiasis. The right kidney measures 10.7 x 4 x 4.6 cm. LEFT KIDNEY: The left kidney is normal in shape, size, contour, and echogenicity. There is a 0.7 cm calculus of the midpole of left kidney corresponding to this calyceal stone noted on previous examination. There is mild pelvocaliectasis. The left kidney measures 11 x 5.1 x 4.2 cm. BLADDER: The bladder is smooth in contour. Bilateral ureteral jets are identified. The left UVJ calculus noted on CT is not well-visualized on the current examination. The prevoid bladder volume is 105 milliliters.. The postvoid bladder volume is 3 milliliters. AORTA AND IVC: No images are submitted of the vasculature. RETROPERITONEUM: Unremarkable. OTHER: None. IMPRESSION: 1. LEFT CALYCEAL STONE WITH MILD LEFT HYDRONEPHROSIS. THE LEFT URETERAL STONE NOTED ON CT IS NOT WELL VISUALIZED ON THE CURRENT EXAMINATION. 2. 3 ML POSTVOID RESIDUAL. BILATERAL URETERAL JETS ARE NOTED.
[2017-06-30] MEDS ORDERED: NS 0.9% 1000 ML* 1,000 ML IV SCH (09:00)
[2017-06-30] MEDS ORDERED: HYDROmorphone INJ* 2 MG/ML CARPUJECT SYRINGE ONE (10:33)
[2017-06-30] MEDS ORDERED: oxyCODONE/Acetamin 5/325 MG* TAB PO PRN (10:49)
[2017-06-30] MEDS ORDERED: HYDROmorphone INJ* 2 MG/ML CARPUJECT SYRINGE IV PRN (10:50)
[2017-06-30] MEDS ORDERED: Ondansetron INJ* 2 MG/ML VIAL IV PRN (10:50)
[2017-06-30] MEDS ORDERED: fentaNYL* 50 MCG/ML 2 ML VIAL (100 MCG VIAL) ONE (15:32)
[2017-06-30] MEDS ORDERED: Midazolam* 1 MG/ML 2 ML VIAL (2 MG) ONE (15:32)
[2017-06-30] MEDS ORDERED: Propofol* 10 MG/ML 20 ML BTL IV PUSH ONE (15:38)
[2017-06-30] MEDS ORDERED: Lidocaine 2% PF * 5 ML VIAL ONE (15:38)
[2017-06-30] MEDS ORDERED: Iohexol 180 (CONTRAST) 10 ML SDV IV ONE (16:37)
[2017-06-30] MEDS ORDERED: Rocuronium* 10 MG/ML VIAL ONE (16:59)
[2017-06-30] MEDS ORDERED: Gentamicin ADULT (*) 160 MG in NS 0.9% 100 ML* 100 ML IVPB ONE (17:00)
[2017-06-30] MEDS ORDERED: cefTRIAXone(*) 2 GM in NS 0.9% 100 ML* 100 ML IVPB ONE (17:00)
[2017-06-30] MEDS ORDERED: Sodium Citrate/Citric Acid* 15 ML UDC ONE (17:03)
[2017-06-30] MEDS ORDERED: Dexamethasone IV* 4 MG/ML 1 ML (4 MG) ONE (17:39)
--- NOTE | 2017-06-30 18:29 | RAD ---
CPT II Codes: G9500 Approximately 9 seconds of fluoroscopy time was used. Duplicated left renal collecting system is noted. This placement of a left ureteral stent. There may be calyceal rupture noted. IMPRESSION: Fluoroscopic services provided for referring physician for left ureteral stent placement. There is likely a calyceal rupture present.
[2017-06-30] MEDS ORDERED: PROCHLORPERAZINE INJ 5 MG/ML 2 ML VIAL ONE (18:57)
[2017-06-30] MEDS ORDERED: Scopolamine 1.5 mg* PATCH ONE (18:58)
[2017-06-30 19:56] VITALS: BP 137/98
--- NOTE | 2017-07-01 10:19 | OP ---
CC: Dr. Rosaura Phillips MD; Dr. Santi Chen* OPERATIVE REPORT: DATE OF OPERATION: 06/30/17 - Inpatient, room SSU 348- DATE OF : 64 SURGEON: Santi Chen MD ANESTHESIOLOGIST: Dr. Sumner. ANESTHESIA: General. PRE-OP DIAGNOSES: 1. Left hydronephrosis. 2. Calculus, left ureter. POST-OP DIAGNOSES: 1. Left hydronephrosis. 2. Calculus, left ureter. OPERATIVE PROCEDURE: 1. Cystoscopy. 2. Left retrograde pyelogram. 3. Left ureteroscopy. 4. Laser lithotripsy of left ureteral calculus and removal of calculus fragments. 5. Left stent insertion. COMPLICATIONS: None. STENT USED: 6-Estonian stent left ureter. OPERATIVE FINDINGS: 1. Left hydronephrosis with evidence of extravasation noted around the left kidney and proximal ureter secondary to a 5 to 6 mm obstructing calculus, left distal ureter. 2. Chronic inflammatory changes surrounding the right orifice with no evidence of any suspicious bladder lesions noted. POSTOPERATIVE CONDITION: Stable. INDICATION: Elly Saldivar is a 56-year-old lady who has made 2 trips for the emergency room secondary to severe left flank pain, nausea and vomiting because of an obstructing calculus in the left ureter. DESCRIPTION OF PROCEDURE: After induction of general anesthesia, the patient was placed in the dorsal lithotomy position. Sequential compression devices were in place and functioning. Initial cystoscopy revealed a normal appearing bladder. There were some chronic inflammatory changes surrounding the right orifice and the rest of the bladder was unremarkable. Clear efflux was noted from the right orifice. There was no efflux noted from the left orifice suggesting that obstruction had become a complete obstruction at this time. A guidewire was introduced into the left ureter. Retrograde pyelogram revealed extravasation around the kidney and proximal ureter with a mildly dilated collecting system. A 6- Estonian semi rigid ureteroscope was introduced and advanced under direct vision. A couple of centimeters above the uterovesical junction, an approximately 6 mm calculus was noted with surrounding inflammatory response. Using a 550 micron holmium laser, this was successfully broken up into multiple fragments and using the 3 pronged grasper, all of the fragments were retrieved. The ureteroscope was advanced more proximally to make sure there were no remaining fragments and none were noted. A 6-Estonian stent was introduced and positioned under fluoroscopy with good proximal and distal positioning obtained. A 16-Estonian De La Rosa was placed for temporary bladder drainage. The patient tolerated the procedure satisfactorily and was transferred back to the Recovery area in stable condition. [id number]/[facility] #: [id number] [facility]TD[facility]
== END 2017-06-30 20:17 | disposition home or self-care (01) ==
LOC: ED 05:37 → INTOOBSV 09:21 → SSU 09:21
PROVIDERS: ADMIT Urology; ATTEND Urology
PROC: 0T778DZ Dilation of Left Ureter with Intraluminal Device, Via Natural or Artificial Opening Endoscopic (ICD-10-PCS; 2017-06-30)
PROC: 0TC78ZZ Extirpation of Matter from Left Ureter, Via Natural or Artificial Opening Endoscopic (ICD-10-PCS; 2017-06-30)
PROC: BT1FZZZ Fluoroscopy of Left Kidney, Ureter and Bladder (ICD-10-PCS; 2017-06-30)
PROC: 0WHR8YZ Insertion of Other Device into Genitourinary Tract, Via Natural or Artificial Opening Endoscopic (ICD-10-PCS; 2017-06-30)
PROC: 0TF78ZZ Fragmentation in Left Ureter, Via Natural or Artificial Opening Endoscopic (ICD-10-PCS; principal; 2017-06-30 16:30)
DX: N13.2 Hydronephrosis with renal and ureteral calculous obstruction (principal); R10.9 Unspecified abdominal pain
CPT/HCPCS: 36415; 74018; 74420; 76770; 80053; 81003; 81015; 82365; 83605; 85025; 86140; 87086; 88300; 96374; 96375; 96376; 99285; A9270-GY; C1876; G0378; J0696; J0780; J1100; J1170; J1580; J1885; J2250; J2270; J2405; J2704; J3010

== ENCOUNTER 2017-07-11 09:43 | Day surgery (SDC) | payer OTHER ==
[~2017-07-11 09:43] MED LIST: Buffered Lidocaine 0.9% SYRIN* 5 ML/SYR SYRINGE INTRADERM ONE
[2017-07-11] MEDS ORDERED: Buffered Lidocaine 0.9% SYRIN* 5 ML/SYR SYRINGE ONE (09:50)
[2017-07-11] MEDS ORDERED: cefTRIAXone(*) 2 GM ADDV.VIAL IVPB ONE (09:50)
[2017-07-11] MEDS ORDERED: Midazolam* 1 MG/ML 2 ML VIAL (2 MG) ONE (11:37)
[2017-07-11] MEDS ORDERED: fentaNYL* 50 MCG/ML 2 ML VIAL (100 MCG VIAL) ONE (11:37)
[2017-07-11] MEDS ORDERED: Dexamethasone IV* 4 MG/ML 1 ML (4 MG) ONE (12:41)
[2017-07-11] MEDS ORDERED: DiMENhydriNATE IV* 50 MG/ML VIAL ONE (12:41)
[2017-07-11] MEDS ORDERED: Propofol* 10 MG/ML 20 ML BTL IV PUSH ONE (12:41)
[2017-07-11] MEDS ORDERED: Naloxone* 0.4 MG/ML 1 ML VIAL IV PRN (12:42)
[2017-07-11] MEDS ORDERED: Acetaminophen TAB* 325 MG PO PRN (12:42)
[2017-07-11] MEDS ORDERED: fentaNYL* 50 MCG/ML 2 ML VIAL (100 MCG VIAL) IV PRN (12:42)
[2017-07-11] MEDS ORDERED: PROCHLORPERAZINE INJ 5 MG/ML 2 ML VIAL IV PRN (12:42)
[2017-07-11] MEDS ORDERED: Ondansetron INJ* 2 MG/ML VIAL IV PRN (12:42)
[2017-07-11] MEDS ORDERED: diPHENhydraMINE IV* 50 MG/ML 1 ml VIAL (BENADRYL) ONE (12:50)
--- NOTE | 2017-07-11 13:55 | RAD ---
Indication: Preshock wave lithotripsy for LEFT nephrolithiasis with obstructive stone at the LEFT ureterovesicular junction on June 29, 2017 CT. Comparison: July 05, 2017 abdomen radiograph and June 29, 2017 CT. Technique: Supine view of the abdomen. Report: Unremarkable bowel gas pattern. Negative for significant retained stool within the colon. No suspicious calcifications or visualized at either renal fossa or along the course of the ureters. Pelvic phleboliths noted. Unremarkable soft tissue contours. IMPRESSION: The current exam is negative for radiographic conspicuous urolithiasis.
[2017-07-11 14:55] VITALS: BP 124/82
--- NOTE | 2017-07-12 08:21 | OP ---
DATE OF OPERATION: 07/11/17 - [facility] DATE OF : 64 SURGEON: Santi Chen MD ANESTHESIOLOGIST: Dr. Del Castillo. ANESTHESIA: General. PRE-OP DIAGNOSIS: Left renal calculus. POST-OP DIAGNOSIS: Left renal calculus. OPERATIVE PROCEDURE: Shock wave lithotripsy of left renal calculus. COMPLICATIONS: None. INDICATIONS: Elly Saldivar is a 56-year-old lady who had undergone successful treatment for an obstructing calculus in the left ureter. At that time, she was noted to have a 5 mm calculus in the left kidney seen better on ultrasound and she is now being brought in for shock wave lithotripsy of that. POSTOPERATIVE CONDITION: Stable. DESCRIPTION OF PROCEDURE: After induction of general anesthesia, the patient was placed on the lithotripsy table in the supine position. The calculus which was difficult to visualize on the preoperative x-ray could be visualized on fluoroscopy adjacent to the proximal coil of the stent. This was located in the mid pole area of the left kidney and shock wave lithotripsy was commenced at a rate of 60 shocks per minute. After the initial 300 shocks, there was a pause in lithotripsy for several minutes in an effort to minimize any potential trauma to the kidney. The lithotripsy was then resumed and a total of 750 shocks were administered. A good fragmentation was observed. Patient tolerated the procedure satisfactorily and was transferred back to the recovery area in stable condition. [id number]/[facility] #: [id number] MTDD
== END 2017-07-11 15:14 | disposition home or self-care (01) ==
LOC: OR 09:43
PROVIDERS: ATTEND Urology
DX: N20.0 Calculus of kidney (principal); D64.9 Anemia, unspecified; Z87.442 Personal history of urinary calculi
CPT/HCPCS: 74018; J0696; J1100; J1200; J1240; J2250; J2704; J3010